=== PATIENT | female | born 1985 | race Caucasian/White ===

== ENCOUNTER 2024-06-24 09:04 | Outpatient (CLI) | payer BC | END 2024-06-24 09:05 | disposition home or self-care (01) | LOC: BICMAMMO 09:04 | PROVIDERS: ATTEND Obstetrics & Gynecology | DX: R92.8 Other abnormal and inconclusive findings on diagnostic imaging of breast (principal) | CPT/HCPCS: G0279 ==

== ENCOUNTER → 2024-08-15 | Day surgery (SDC) | payer BC, OTHER | LOC: BICULT 12:22 | PROVIDERS: ATTEND Obstetrics & Gynecology | PROC: 0HBT3ZX Excision of Right Breast, Percutaneous Approach, Diagnostic (ICD-10-PCS; principal; 2024-08-15) | DX: N60.21 Fibroadenosis of right breast (principal); Z88.8 Allergy status to other drugs, medicaments and biological substances | CPT/HCPCS: 19083; 19084; 88305; 88341; 88342 ==